=== PATIENT | male | born 1950 | race Caucasian/White ===

== ENCOUNTER → 2016-08-31 | Day surgery (SDC) | payer OTHER ==
[~2016-08-31] VITALS: Ht 180.3 cm; Wt 131.5 kg
[~2016-08-31] MED LIST: ATENOLOL-CHLOR1 EACH PO; FINASTERIDE5 MG PO; LIPITOR TAB 1010 MG PO; LOSARTAN POTAS100 MG PO; TENORMIN 50 MG50 MG PO
== END | disposition home or self-care (01) ==
LOC: OR 06:16
PROVIDERS: Internal Medicine Gastroenterology
PROC: 0DBL8ZX Excision of Transverse Colon, Via Natural or Artificial Opening Endoscopic, Diagnostic (ICD-10-PCS; principal; 2016-08-31 08:00)
DX: Z12.11 Encounter for screening for malignant neoplasm of colon (principal); D12.3 Benign neoplasm of transverse colon; K64.0 First degree hemorrhoids; I10 Essential (primary) hypertension; Z90.49 Acquired absence of other specified parts of digestive tract
CPT/HCPCS: J3010; J7030